=== PATIENT | female | born 1975 | race Two or more races ===

== ENCOUNTER 2016-08-24 06:43 | Emergency (ER) | payer MEDICAID ==
[~2016-08-24] VITALS: Ht 160 cm; Wt 81.4 kg
[2016-08-24] MEDS ORDERED: [UNRECOGNIZED DRUG - OTHER] PO (07:13)
[2016-08-24] MEDS ORDERED: OxyCODONE HCL/ACETAMINOPHEN 5-325 MG TABLET PO ONE (10:15)
[2016-08-24] MEDS ORDERED: METHOCARBAMOL 500 MG TABLET PO ONE (10:15)
[2016-08-24 11:36] VITALS: BP 136/90
== END 2016-08-24 11:37 | disposition home or self-care (01) ==
LOC: EMS 06:44
DX: S39.012A Strain of muscle, fascia and tendon of lower back, initial encounter (principal); Z91.010 Allergy to peanuts; Z88.0 Allergy status to penicillin; Z91.018 Allergy to other foods; X58.XXXA Exposure to other specified factors, initial encounter; Y93.E9 Activity, other interior property and clothing maintenance; Y92.090 Kitchen in other non-institutional residence as the place of occurrence of the external cause; Y99.8 Other external cause status
CPT/HCPCS: 99283

== ENCOUNTER 2019-08-06 12:02 | Inpatient (IN) | payer MEDICAID ==
[~2019-08-06] VITALS: Ht 160 cm; Wt 86.5 kg
[~2019-08-06 12:02] MED LIST: [UNRECOGNIZED DRUG - OTHER] PO
[2019-08-06] MEDS ORDERED: LEVO75 PO (12:20)
[2019-08-06] MEDS ORDERED: ASPI-1227 PO (12:20)
[2019-08-06] MEDS ORDERED: ACETAMINOPHEN 325 MG TABLET PO PRN (13:15)
[2019-08-06] MEDS: ATORVASTATIN CALCIUM 20 MG TABLET PO SCH (13:29)
[2019-08-06] MEDS: ASPIRIN 81 MG CHEWABLE TABLET PO SCH (13:29)
[2019-08-06 13:36] LABS: BASOPHILS % (AUTO) 1.2 % (0.0-2.0); EOSINOPHILS % (AUTO) 3.7 % (1.0-6.0); HEMATOCRIT 38.4 % (36-46); HEMOGLOBIN 12.7 g/dL (12.0-16.0); LYMPHOCYTES # (AUTO) 1.7 K/uL (1.0-4.8); LYMPHOCYTES % (AUTO) 32.9 % (22.0-44.0); MEAN CORPUSCULAR HEMOGLOBIN 29.3 pg (26.0-34.0); MEAN CORPUSCULAR HGB CONC 33.1 G/dL (31.0-37.0); MEAN CORPUSCULAR VOLUME 89 fL (80-100); MONOCYTES # (AUTO) 0.6 K/uL (0.1-1.0); MONOCYTES % (AUTO) 11.8 % (2.0-9.0); NEUTROPHILS # (AUTO) 2.6 K/uL (1.8-7.7); NEUTROPHILS % (AUTO) 50.4 % (40.0-70.0); PLATELET COUNT (AUTO) 266 K/uL (150-450); RED BLOOD CELL COUNT(AUTO) 4.33 MIL/uL (4.00-5.20); RED CELL DISTRIBUTION WIDTH 14.2 % (11.5-14.5)
[2019-08-06 13:48] LABS: ANION GAP 8 mmol/L (8-16); CALCIUM, TOTAL 8.6 mg/dL (8.8-10.5); CARBON DIOXIDE 27 mmol/L (22-29); CHLORIDE 103 mmol/L (98-107); CREATININE 0.69 mg/dL (0.60-1.30); GLOMERULAR FILTR. RATE CALC > 60 mL/min (>60); GLUCOSE,RANDOM 93 mg/dL (70-110); POTASSIUM 3.7 mmol/L (3.5-5.1); SODIUM SERUM 138 mmol/L (136-145); UREA NITROGEN, BLOOD 12 mg/dL (7-18)
[2019-08-06 13:54] LABS: ALANINE AMINOTRANSFERASE 35 U/L (12-78); ALBUMIN 3.7 g/dL (3.4-5.0); ALKALINE PHOSPHATASE 70 U/L (46-116); ASPARTATE AMINOTRANSFERASE 21 U/L (15-37); BILIRUBIN,TOTAL 0.3 mg/dL (0.1-1.0); TOTAL PROTEIN, SERUM 7.2 g/dL (6.4-8.2)
[2019-08-06 14:15] LABS: THYROID STIMULATING HORMONE 0.88 uIU/mL (0.36-3.74)
[2019-08-06] MEDS ORDERED: ASPIRIN 325 MG TABLET PO ONE (14:15)
[2019-08-06] MEDS: HEPARIN SODIUM,PORCINE 5,000 UNITS/ML VIAL SQ SCH (16:42)
[2019-08-06] MEDS: DOCUSATE SODIUM 100 MG CAPSULE PO SCH (20:58)
[2019-08-07] MEDS: HEPARIN SODIUM,PORCINE 5,000 UNITS/ML VIAL SQ SCH ×4 (00:45→23:07)
[2019-08-07] MEDS: LEVOTHYROXINE SODIUM 50 MCG TABLET PO SCH (06:42)
[2019-08-07] MEDS: DOCUSATE SODIUM 100 MG CAPSULE PO SCH (09:00)
[2019-08-07] MEDS ORDERED: FAMOTIDINE 20 MG TABLET PO SCH (09:00)
[2019-08-07 09:24] VITALS: BP 119/77
[2019-08-07] MEDS: ATORVASTATIN CALCIUM 20 MG TABLET PO SCH (09:25)
[2019-08-07] MEDS: ASPIRIN 81 MG CHEWABLE TABLET PO SCH (09:26)
[2019-08-07 11:15] VITALS: BP 121/65
[2019-08-07] MEDS ORDERED: DOCUSATE SODIUM 100 MG CAPSULE PO PRN (11:30)
[2019-08-07] MEDS ORDERED: IBUPROFEN 600 MG TABLET PO ONE (11:45)
[2019-08-07] MEDS ORDERED: IBUPROFEN 600 MG TABLET PO PRN (11:45)
[2019-08-07] MEDS ORDERED: ONDANSETRON HCL 4 MG/2 ML VIAL IVP PRN (13:45)
[2019-08-07] MEDS ORDERED: ALPRAZolam 0.25 MG TABLET PO ONE (13:45)
[2019-08-07 16:20] VITALS: BP 123/71
[2019-08-07 21:13] VITALS: BP 153/84
[2019-08-07] MEDS: FAMOTIDINE 20 MG TABLET PO SCH (21:20)
[2019-08-08 00:06] VITALS: BP 116/71
[2019-08-08 04:56] VITALS: BP 105/58
[2019-08-08] MEDS: LEVOTHYROXINE SODIUM 50 MCG TABLET PO SCH (06:15)
[2019-08-08 07:20] LABS: BASOPHILS % (AUTO) 0.9 % (0.0-2.0); EOSINOPHILS % (AUTO) 3.2 % (1.0-6.0); HEMATOCRIT 37.3 % (36-46); HEMOGLOBIN 12.3 g/dL (12.0-16.0); LYMPHOCYTES % (AUTO) 33.9 % (22.0-44.0); MEAN CORPUSCULAR HEMOGLOBIN 29.3 pg (26.0-34.0); MEAN CORPUSCULAR VOLUME 89 fL (80-100); MONOCYTES # (AUTO) 0.7 K/uL (0.1-1.0); MONOCYTES % (AUTO) 12.3 % (2.0-9.0); NEUTROPHILS # (AUTO) 2.9 K/uL (1.8-7.7); NEUTROPHILS % (AUTO) 49.7 % (40.0-70.0); PLATELET COUNT (AUTO) 252 K/uL (150-450)
[2019-08-08 07:30] VITALS: BP 133/81
[2019-08-08 07:55] LABS: ANION GAP 8 mmol/L (8-16); CALCIUM, TOTAL 8.6 mg/dL (8.8-10.5); CARBON DIOXIDE 26 mmol/L (22-29); CHLORIDE 104 mmol/L (98-107); CHOL/HDL RATIO 2.6 (3.9-5.7); CHOLESTEROL 111 mg/dL (131-200); CREATININE 0.68 mg/dL (0.60-1.30); FREE T4 (FREE THYROXINE) 1.13 ng/dL (0.76-1.46); GLOMERULAR FILTR. RATE CALC > 60 mL/min (>60); GLUCOSE,RANDOM 89 mg/dL (70-110); HDL CHOLESTEROL 42 mg/dL (40-60); LDL CHOL (CALC.) 51 mg/dL (0-130); POTASSIUM 3.8 mmol/L (3.5-5.1); SODIUM SERUM 138 mmol/L (136-145); THYROID STIMULATING HORMONE 1.61 uIU/mL (0.36-3.74); TRIGLYCERIDES 92 mg/dL (15-150); UREA NITROGEN, BLOOD 11 mg/dL (7-18)
[2019-08-08] MEDS: FAMOTIDINE 20 MG TABLET PO SCH (08:13)
[2019-08-08] MEDS: ASPIRIN 81 MG CHEWABLE TABLET PO SCH (08:13)
[2019-08-08] MEDS: HEPARIN SODIUM,PORCINE 5,000 UNITS/ML VIAL SQ SCH ×2 (08:13→16:00)
[2019-08-08] MEDS: ATORVASTATIN CALCIUM 20 MG TABLET PO SCH (08:13)
[2019-08-08 11:33] VITALS: BP 118/72
[2019-08-08 16:17] VITALS: BP 121/81
== END 2019-08-08 16:30 | disposition home or self-care (01) | DRG 47 ==
LOC: EMS 12:04 → 5S 08-07 06:11
PROVIDERS: ADMIT Internal Medicine; ATTEND Internal Medicine
DX: G45.9 Transient cerebral ischemic attack, unspecified (principal); I67.1 Cerebral aneurysm, nonruptured; E03.9 Hypothyroidism, unspecified; G43.909 Migraine, unspecified, not intractable, without status migrainosus; I10 Essential (primary) hypertension; Z88.0 Allergy status to penicillin; Z88.8 Allergy status to other drugs, medicaments and biological substances; Z79.82 Long term (current) use of aspirin
CPT/HCPCS: 70450; 70496; 70544; 70551; 84439; 84443; 93005; 93306; 93880; 97161; 97165; 97535; J1644; J2405

== ENCOUNTER 2022-06-10 09:40 | Emergency (ER) | payer MEDICAID ==
[~2022-06-10] VITALS: Ht 160 cm; Wt 82.7 kg
[~2022-06-10 09:40] MED LIST changes: +LEVO75 PO; -[UNRECOGNIZED DRUG - OTHER] PO
[2022-06-10] MEDS ORDERED: IBUPROFEN 600 MG TABLET PO ONE (11:15)
[2022-06-10 13:24] VITALS: BP 138/95
== END 2022-06-10 13:34 | disposition home or self-care (01) ==
LOC: EMS 09:53
DX: R06.4 Hyperventilation (principal); E03.9 Hypothyroidism, unspecified; G43.909 Migraine, unspecified, not intractable, without status migrainosus; Z88.0 Allergy status to penicillin; Z91.010 Allergy to peanuts; Z91.018 Allergy to other foods
CPT/HCPCS: 70450; 93005; 99284

== ENCOUNTER 2024-02-14 14:22 | Emergency (ER) | payer MEDICAID, OTHER ==
[~2024-02-14] VITALS: Ht 160 cm; Wt 84.5 kg
[2024-02-14 14:31] VITALS: BP 150/84; PULSE 83; RESP 20; TEMP 98.5; O2SAT 98
[2024-02-14 16:05] LABS: BASOPHILS % (AUTO) 0.6 % (0.0-2.0); EOSINOPHILS % (AUTO) 2.6 % (1.0-6.0); HEMATOCRIT 40.7 % (36-46); HEMOGLOBIN 13.3 g/dL (12.0-16.0); LYMPHOCYTES # (AUTO) 2.1 K/uL (1.0-4.8); LYMPHOCYTES % (AUTO) 26.4 % (22.0-44.0); MEAN CORPUSCULAR HEMOGLOBIN 30.1 pg (26.0-34.0); MEAN CORPUSCULAR HGB CONC 32.7 G/dL (31.0-37.0); MEAN CORPUSCULAR VOLUME 92 fL (80-100); MONOCYTES # (AUTO) 0.5 K/uL (0.1-1.0); MONOCYTES % (AUTO) 6.9 % (2.0-9.0); NEUTROPHILS % (AUTO) 63.5 % (40.0-70.0); PLATELET COUNT (AUTO) 253 K/uL (150-450); RED BLOOD CELL COUNT(AUTO) 4.43 MIL/uL (4.00-5.20); RED CELL DISTRIBUTION WIDTH 13.3 % (11.5-14.5); WHITE BLOOD COUNT (AUTO) 7.9 K/uL (4.5-11.0)
[2024-02-14 16:11] LABS: APPEARANCE,URINE CLEAR (CLEAR); BILIRUBIN,URINE NEGATIVE (NEGATIVE); COLOR,URINE COLORLESS (YELLOW); GLUCOSE, URINE (UA) NEGATIVE (NEGATIVE); KETONES,URINE NEGATIVE (NEGATIVE); LEUKOCYTE ESTERASE ,URINE NEGATIVE (NEGATIVE); NITRATE,URINE NEGATIVE (NEGATIVE); OCCULT BLOOD,URINE NEGATIVE (NEGATIVE); PH,URINE 6.5 (5.0-8.0); PROTEIN,URINE NEGATIVE (NEGATIVE); SPECIFIC GRAVITIY, URINE 1.013 (1.003-1.030); UROBILINOGEN,URINE <=1.0 mg/dL (<=1.0)
[2024-02-14 16:14] LABS: ANION GAP 11 mmol/L (8-16); CALCIUM, TOTAL 8.9 mg/dL (8.8-10.5); CARBON DIOXIDE 26 mmol/L (22-29); CHLORIDE 105 mmol/L (98-107); CREATININE 0.74 mg/dL (0.60-1.30); GLOMERULAR FILTR. RATE CALC > 60 mL/min (>60); GLUCOSE,RANDOM 98 mg/dL (70-110); POTASSIUM 3.8 mmol/L (3.5-5.1); SODIUM SERUM 142 mmol/L (136-145); UREA NITROGEN, BLOOD 15 mg/dL (7-18)
[2024-02-14] MEDS ORDERED: CYCL-448 PO (18:25)
== END 2024-02-14 18:35 | disposition home or self-care (01) ==
LOC: EMS 14:22
DX: R07.81 Pleurodynia (principal); Z88.0 Allergy status to penicillin; Z91.010 Allergy to peanuts; Z91.018 Allergy to other foods
CPT/HCPCS: 71045; 80048; 81003; 85025; 99284; 36415-L1; 36415-TC

== ENCOUNTER 2024-04-13 14:21 | Emergency (ER) | payer OTHER ==
[~2024-04-13] VITALS: Ht 160 cm; Wt 84.5 kg
[~2024-04-13 14:21] MED LIST changes: +CYCL-448 PO
[2024-04-13 15:00] VITALS: TEMP 99.5
[2024-04-13 15:17] LABS: BASOPHILS % (AUTO) 0.4 % (0.0-2.0); EOSINOPHILS % (AUTO) 0.2 % (1.0-6.0); HEMATOCRIT 43.7 % (36-46); HEMOGLOBIN 14.5 g/dL (12.0-16.0); LYMPHOCYTES # (AUTO) 1.2 K/uL (1.0-4.8); LYMPHOCYTES % (AUTO) 10.3 % (22.0-44.0); MEAN CORPUSCULAR HEMOGLOBIN 30.2 pg (26.0-34.0); MEAN CORPUSCULAR HGB CONC 33.3 G/dL (31.0-37.0); MEAN CORPUSCULAR VOLUME 91 fL (80-100); MONOCYTES # (AUTO) 0.6 K/uL (0.1-1.0); MONOCYTES % (AUTO) 5.2 % (2.0-9.0); NEUTROPHILS # (AUTO) 9.4 K/uL (1.8-7.7); NEUTROPHILS % (AUTO) 83.9 % (40.0-70.0); PLATELET COUNT (AUTO) 258 K/uL (150-450); RED BLOOD CELL COUNT(AUTO) 4.82 MIL/uL (4.00-5.20); RED CELL DISTRIBUTION WIDTH 13.2 % (11.5-14.5); WHITE BLOOD COUNT (AUTO) 11.2 K/uL (4.5-11.0)
[2024-04-13 15:27] LABS: ANION GAP 6 mmol/L (8-16); CARBON DIOXIDE 28 mmol/L (22-29); CHLORIDE 102 mmol/L (98-107); GLOMERULAR FILTR. RATE CALC > 60 mL/min (>60); GLUCOSE,RANDOM 123 mg/dL (70-110); POTASSIUM 3.6 mmol/L (3.5-5.1); SODIUM SERUM 136 mmol/L (136-145); UREA NITROGEN, BLOOD 7 mg/dL (7-18)
[2024-04-13 15:28] LABS: LIPASE 56 U/L (16-77)
[2024-04-13 15:35] LABS: TROPONIN I-HIGH SENSITIVITY 4 ng/L (<51)
[2024-04-13 16:04] LABS: INFLUENZA TYPE A NEGATIVE FOR TYPE A (NEGATIVE); INFLUENZA TYPE B NEGATIVE FOR TYPE B (NEGATIVE)
[2024-04-13 16:22] LABS: ALANINE AMINOTRANSFERASE 41 U/L (12-78); ALBUMIN 4.2 g/dL (3.4-5.0); ALKALINE PHOSPHATASE 109 U/L (46-116); ASPARTATE AMINOTRANSFERASE 26 U/L (15-37); BILIRUBIN,TOTAL 0.8 mg/dL (0.1-1.0)
[2024-04-13] MEDS: ONDANSETRON HCL 4 MG/2 ML VIAL IVP ONE (16:28)
[2024-04-13] MEDS: SODIUM CHLORIDE 0.9% 1,000 ML IV ONE (16:28)
[2024-04-13 17:13] VITALS: BP 137/71; PULSE 65; RESP 18; O2SAT 98
[2024-04-13 17:27] LABS: APPEARANCE,URINE CLEAR (CLEAR); BILIRUBIN,URINE NEGATIVE (NEGATIVE); COLOR,URINE COLORLESS (YELLOW); GLUCOSE, URINE (UA) NEGATIVE (NEGATIVE); KETONES,URINE TRACE mg/dL (NEGATIVE); LEUKOCYTE ESTERASE ,URINE NEGATIVE (NEGATIVE); NITRATE,URINE NEGATIVE (NEGATIVE); OCCULT BLOOD,URINE NEGATIVE (NEGATIVE); PH,URINE 6.5 (5.0-8.0); PROTEIN,URINE NEGATIVE (NEGATIVE); SPECIFIC GRAVITIY, URINE 1.007 (1.003-1.030); UROBILINOGEN,URINE <=1.0 mg/dL (<=1.0)
[2024-04-13] MEDS: ACETAMINOPHEN 500 MG TABLET PO ONE (18:41)
[2024-04-13] MEDS: DICYCLOMINE HCL 10 MG CAPSULE PO ONE (19:31)
[2024-04-13] MEDS ORDERED: ONDA-104 PO (19:31)
== END 2024-04-13 20:04 | disposition home or self-care (01) ==
LOC: EMS 14:21
DX: K52.9 Noninfective gastroenteritis and colitis, unspecified (principal); R11.2 Nausea with vomiting, unspecified; E03.9 Hypothyroidism, unspecified; G43.909 Migraine, unspecified, not intractable, without status migrainosus; Z88.0 Allergy status to penicillin
CPT/HCPCS: 99284; 96374; 96361; 80048; 80076; 81003; 83690; 84484; 85025; 87804; 36415; 93005; J2405; J7030